=== PATIENT | female | born 1970 | race Two or more races ===

== ENCOUNTER 2024-03-23 04:17 | Day surgery (SDC) | payer OTHER ==
[2024-03-18 09:28] VITALS: BMI 30.7
[~2024-03-23 04:17] MED LIST: ACETAMINOPHEN 325 MG TABLET (FP) PO PRN
[2024-03-23] MEDS ORDERED: BSS (NA/CA/MG/K) BALANCED SALT SOLUTION OPHTH SOLN 15 ML BOTTLE ONE (07:22)
[2024-03-23] MEDS ORDERED: POVIDONE-IODINE 5% OPHTHALMIC PREP 30 ML SOLUTION ONE (07:23)
[2024-03-23] MEDS ORDERED: KETOROLAC TROMETHAMINE 0.5% EYE DROP 1 DROP DROPS ONE (09:19)
[2024-03-23] MEDS ORDERED: TROPICAMIDE 1% OPHTH SOLN 15 ML BOTTLE ONE (09:19)
[2024-03-23] MEDS ORDERED: CYCLOPENTOLATE HCL 1% OPHTH SOLN 2 ML BOTTLE ONE (09:19)
[2024-03-23] MEDS ORDERED: OFLOXACIN 0.3% OPHTHALMIC SOLUTION 5 ML BOTTLE ONE (09:19)
[2024-03-23 09:26] VITALS: RESP 16; TEMP 97.5
[2024-03-23] MEDS: KETOROLAC TROMETHAMINE 0.5% EYE DROP 1 DROP DROPS OP SCH (09:45)
[2024-03-23] MEDS: TROPICAMIDE 1% OPHTH SOLN 15 ML BOTTLE OP SCH (09:45)
[2024-03-23] MEDS: CYCLOPENTOLATE HCL 1% OPHTH SOLN 2 ML BOTTLE OP SCH (09:45)
[2024-03-23] MEDS: OFLOXACIN 0.3% OPHTHALMIC SOLUTION 5 ML BOTTLE OP SCH (09:46)
[2024-03-23] MEDS: PHENYLEPHRINE 2.5% OPHTH SOLN 15 ML BOTTLE OP SCH (09:46)
[2024-03-23] MEDS ORDERED: MIDAZOLAM HCL 2 MG/2 ML SINGLE DOSE VIAL ONE (11:51)
[2024-03-23] MEDS ORDERED: PROPOFOL 20 ML ONE (11:52)
[2024-03-23] MEDS: LIDOCAINE HCL/PF 2% SDV 5ML VIAL INF ONE (12:01)
[2024-03-23] MEDS: BUPIVACAINE HCL/PF 0.75% 10 ML VIAL NR ONE (12:01)
[2024-03-23] MEDS: POVIDONE-IODINE 5% OPHTHALMIC PREP 30 ML SOLUTION OS ONE (12:03)
[2024-03-23] MEDS: BSS (NA/CA/MG/K) BALANCED SALT SOLUTION OPHTH SOLN 15 ML BOTTLE OS ONE (12:08)
[2024-03-23] MEDS: LIDOCAINE HCL 1% PRESERVATIVE FREE - 30ML VIAL IO ONE (12:09)
[2024-03-23] MEDS: CHONDROITIN SU A/HYALUR SOD 1 KIT IO ONE (12:09)
[2024-03-23] MEDS: EPINEPHrine/PF 1 MG/1 ML (1:1,000) AMPULE SQ ONE (12:14)
[2024-03-23 13:03] VITALS: BP 121/72; PULSE 74
== END 2024-03-23 13:45 | disposition home or self-care (01) ==
LOC: JASU-SURG 04:17
PROVIDERS: ATTEND Ophthalmology
PROC: 08RK3JZ Replacement of Left Lens with Synthetic Substitute, Percutaneous Approach (ICD-10-PCS; principal; 2024-03-23 11:00)
DX: H26.9 Unspecified cataract (principal)
CPT/HCPCS: 66984; V2632